=== PATIENT | female | born 1980 | race Caucasian/White ===

== ENCOUNTER 2016-04-07 03:00 | Inpatient (IN) | payer BC, OTHER ==
[~2016-04-07] VITALS: Ht 170.2 cm; Wt 83.0 kg
[2016-04-07] VITALS (21 sets, daily range): BP systolic 111–162; BP diastolic 53–85
[2016-04-07] MEDS ORDERED: D5 LR IV SOLUTION 1,000 ML IV SCH (15:50)
[2016-04-07] MEDS ORDERED: MINERAL OIL CONCENTRATE 99.9% 15 ML UDC TOP PRN (16:00)
[2016-04-07 16:04] LABS: BASOPHILS % (AUTO) 0 % (0-10); EOSINOPHILS # (AUTO) 0.1 10^3/uL (0.0-0.3); EOSINOPHILS % (AUTO) 1 % (0-10); LYMPHOCYTES # (AUTO) 2.2 X 10^3 (1.0-4.0); LYMPHOCYTES % (AUTO) 17 % (12-44); MEAN CORPUSCULAR HEMOGLOBIN 30 PG (25-34); MEAN CORPUSCULAR HGB CONC 34 G/DL (32-36); MEAN CORPUSCULAR VOLUME 90 FL (80-99); MEAN PLATELET VOLUME 11.4 FL (7.4-10.4); MONOCYTES % (AUTO) 8 % (0-12); NEUTROPHILS # (AUTO) 9.4 X 10^3 (1.8-7.8); NEUTROPHILS % (AUTO) 74 % (42-75); PLATELET COUNT 145 10^3/uL (130-400); RED BLOOD COUNT 4.15 10^6/uL (4.35-5.85); RED CELL DISTRIBUTION WIDTH 13.5 % (10.0-14.5); WHITE BLOOD COUNT 12.6 10^3/uL (4.3-11.0)
[2016-04-07] MEDS ORDERED: FERR-74 PO (16:44)
[2016-04-07] MEDS ORDERED: PREN1TAB86 PO (16:45)
[2016-04-07] MEDS ORDERED: OXYTOCIN/NORMAL SALINE 500 ML IV SCH ×2 (17:37→21:09)
[2016-04-07] MEDS ORDERED: fentaNYL INJECTION 100 MCG/2 ML AMP IVP PRN (17:45)
[2016-04-07] MEDS ORDERED: SUFENTA 1 MCG/ML BUPIVA 0.1% 100 ML ONE (18:19)
[2016-04-07] MEDS ORDERED: LACTATED RINGERS 1,000 ML IV ONE (18:42)
[2016-04-07] MEDS ORDERED: diphenhydrAMINE 50 MG/ML INJ (BENADRYL) IV PRN ×2 (18:45→19:15)
[2016-04-07] MEDS ORDERED: METOCLOPRAMIDE INJ 10 MG/2 ML (REGLAN) IV PRN (18:45)
[2016-04-07] MEDS ORDERED: ONDANSETRON 4 MG/2 ML (SDV) Z0FRAN IV PRN ×2 (18:45→19:15)
[2016-04-07] MEDS ORDERED: NALOXONE 0.4 MG/ML 1 ML (NARCAN) VIAL IM PRN (18:45)
[2016-04-07] MEDS ORDERED: fentaNYL INJECTION 100 MCG/2 ML AMP INJ ONE (18:45)
[2016-04-07] MEDS ORDERED: EPIDURAL (SUFENTANIL 1 MCG/ML BUPIVACAINE 0.1%) 100 ML EPI PRN ×2 (18:45→19:15)
[2016-04-07] MEDS ORDERED: CATHETER FLUSH 10 ML SYR IV PRN (18:45)
[2016-04-07] MEDS ORDERED: NALOXONE 0.4 MG/ML 1 ML (NARCAN) VIAL IV PRN ×2 (18:45→19:15)
[2016-04-07] MEDS ORDERED: LACTATED RINGERS 1,000 ML IV SCH (19:02)
[2016-04-07] MEDS ORDERED: FLU TRIvalent (5 YOA+) 2016-17 (AFLURIA) 0.5 ML IM ONE (20:00)
[2016-04-07] MEDS ORDERED: LIDOCAINE/EPI 1%-1:200,000 (XYLOCAINE) 30 ML VIAL ONE (20:20)
--- NOTE | 2016-04-07 21:09 | OB Labor & Delivery Record ---
Vag Delivery Note Vag Delivery Note Date of Delivery: 04/07/16 Preoperative Diagnosis: Jessica Novak is a 35 /Para 5 /4 ,Gestational Age 39 5/7 week in labor, ama Postoperative Diagnosis: Same Surgeon: KEATON MATA Anesthesia: epidural Delivery Type: vaginal Findings: Viable male infant, apgars 9/9, weight 8#10oz Lacerations: 1st degree Intact placenta with 3 vessel cord. No nuchal cord, body cord or shoulder dystocia Estimated Blood Loss: 200 ml Complications: None Condition: Stable Description of Procedure: The patient is a 35 /Para 5 /4 ,Gestational Age 39 5/7 week in labor. AMA. she presented to the office in labor, 6-7 cm dilated. She was dung every 5-6 minutes. Labor was uncomplicated. I did AROM and an epidural was placed. There was pitocin augmentation She progressed to complete dilatation and began to push. She was then set up for delivery. The infant's head was delivered atraumatically in the GEMA position. The shoulders and remainder of the 's body were then delivered without difficulty. Upon delivery, the head was held below the level of the perineum and the mouth and nares were bulb suctioned. The cord was doubly clamped and cut and the was handed off to the pediatric staff. An intact placenta with 3-vessel cord delivered via Villa and there was found to be minimal bleeding.~ Vigorous fundal massage was performed and the fundus was found to be firm. IV oxytocin was given. Examination of the vagina and perineum revealed a 1st laceration repaired in the usual fashion with 3-0 vicryl suture. Following the repair, sponge, instrument and needle counts were correct. Mom and baby were both in stable condition in the labor suite. Vitals - Labs Vital Signs - I&O Vital Signs Date Time Temp Pulse Resp B/P Pulse Ox O2 Delivery O2 Flow Rate FiO2 04/07/16 19:00 94 18 138/63 04/07/16 18:30 77 18 142/79 04/07/16 18:00 85 18 129/77 04/07/16 17:30 90 18 125/72 04/07/16 17:00 82 18 119/63 04/07/16 16:30 88 18 120/74 04/07/16 16:00 98.2 78 18 113/73 Labs Laboratory Tests 04/07/16 15:55: Basophils # (Auto) 0.0, Basophils (%) (Auto) 0, Eosinophils # (Auto) 0.1, Eosinophils (%) (Auto) 1, Hematocrit 37, Hemoglobin 12.5, Lymphocytes # (Auto) 2.2, Lymphocytes (%) (Auto) 17, Mean Corpuscular Hemoglobin 30, Mean Corpuscular Hemoglobin Concent 34, Mean Corpuscular Volume 90, Mean Platelet Volume 11.4H, Monocytes # (Auto) 1.0, Monocytes (%) (Auto) 8, Neutrophils # ( Auto) 9.4H, Neutrophils (%) (Auto) 74, Platelet Count 145, Red Blood Count 4.15L , Red Cell Distribution Width 13.5, White Blood Count 12.6H KEATON MATA DO Apr 07, 2016 9:09 pm
[2016-04-07] MEDS ORDERED: TETANUS,DIPTH,PERTUSS P/F (BOOSTRIX) 0.5 ML VIAL IM ONE (21:15)
[2016-04-07] MEDS ORDERED: MEASLES,MUMPS,RUBELLA 1 EA INJ SQ ONE (21:15)
[2016-04-07] MEDS ORDERED: BENZOCAINE/MENTHOL (DERMOPLAST) 56 ML CAN TP PRN (21:15)
[2016-04-07] MEDS ORDERED: WITCH HAZEL(TUCKS) 40 EA JAR TOP PRN (21:15)
[2016-04-07] MEDS ORDERED: DIBUCAINE (NUPERCAINAL) 1% OINT 30 GM TOP PRN (21:15)
[2016-04-07] MEDS ORDERED: CATHETER FLUSH 10 ML SYR IV SCH ×2 (22:00)
[2016-04-08 00:10] VITALS: BP 113/64
[2016-04-08] MEDS: IBUPROFEN 600 MG (MOTRIN) TAB PO SCH ×4 (00:10→18:53)
[2016-04-08 04:30] VITALS: BP 106/66
[2016-04-08] MEDS: HYDROcodone/APAP 5 MG/325 MG (LORTAB) TAB PO PRN ×2 (06:03→20:14)
[2016-04-08 06:35] LABS: BASOPHILS % (AUTO) 0 % (0-10); EOSINOPHILS # (AUTO) 0.1 10^3/uL (0.0-0.3); EOSINOPHILS % (AUTO) 1 % (0-10); LYMPHOCYTES # (AUTO) 2.1 X 10^3 (1.0-4.0); LYMPHOCYTES % (AUTO) 15 % (12-44); MEAN CORPUSCULAR HEMOGLOBIN 31 PG (25-34); MEAN CORPUSCULAR HGB CONC 34 G/DL (32-36); MEAN CORPUSCULAR VOLUME 91 FL (80-99); MEAN PLATELET VOLUME 11.3 FL (7.4-10.4); MONOCYTES # (AUTO) 1.2 X 10^3 (0.0-1.0); MONOCYTES % (AUTO) 9 % (0-12); NEUTROPHILS # (AUTO) 10.2 X 10^3 (1.8-7.8); NEUTROPHILS % (AUTO) 75 % (42-75); PLATELET COUNT 122 10^3/uL (130-400); RED BLOOD COUNT 3.78 10^6/uL (4.35-5.85); RED CELL DISTRIBUTION WIDTH 13.5 % (10.0-14.5); WHITE BLOOD COUNT 13.7 10^3/uL (4.3-11.0)
--- NOTE | 2016-04-08 08:30 | Anesthesia-Regional Post-Op ---
Regional Patient Condition Mental Status: Alert, Oriented x3 Circulation: Same as Pre-Op Headache: Absent Sensation: Full Recovery Motor Block: Absent Post Op Complications Complications None Follow Up Care/Instructions Patient Instructions None needed. Anesthesia/Patient Condition Patient is doing well, no complaints, stable vital signs, no apparent adverse anesthesia problems. No complications reported per nursing. MILAGROS GONZALEZ CRNA Apr 08, 2016 08:30
[2016-04-08 09:15] VITALS: BP 110/69
[2016-04-08] MEDS: DOCUSATE SODIUM 100 MG (COLACE) CAP PO SCH ×2 (09:24→20:13)
[2016-04-08] MEDS: PRENATAL VITAMIN 1 EA TAB PO SCH (09:24)
[2016-04-08] MEDS: FERROUS SULF 325 MG (IRON) TAB PO SCH (09:24)
--- NOTE | 2016-04-08 10:56 | Postpartum Progress Note ---
Note Note Day # 1 Subjective: Patient is without complaints. Ambulating, voiding. Tolerating a regular diet without nausea or vomiting. Normal lochia. Pain is well controlled with oral pain medications. Objective: Vital Sign - Last 12Hours 04/08/16 04/08/16 04/08/16 00:10 04:30 09:15 Temp 98.0 98.1 97.4 Pulse 73 73 70 Resp 18 18 20 B/P 113/64 106/66 110/69 Pulse Ox 100 99 O2 Delivery Room Air Room Air Room Air Intake and Output 04/08/16 00:00 Output Total 0 ml Balance 0 ml Physical Exam: General - Alert and oriented, no apparent distress Abdomen - Soft, appropriately tender to palpation, non-distended, fundus firm at umbilicus Extremities - no edema, negative Homero's bilaterally Laboratory Tests 04/07/16 15:55: Basophils # (Auto) 0.0, Basophils (%) (Auto) 0, Eosinophils # (Auto) 0.1, Eosinophils (%) (Auto) 1, Hematocrit 37, Hemoglobin 12.5, Lymphocytes # (Auto) 2.2, Lymphocytes (%) (Auto) 17, Mean Corpuscular Hemoglobin 30, Mean Corpuscular Hemoglobin Concent 34, Mean Corpuscular Volume 90, Mean Platelet Volume 11.4H, Monocytes # (Auto) 1.0, Monocytes (%) (Auto) 8, Neutrophils # ( Auto) 9.4H, Neutrophils (%) (Auto) 74, Platelet Count 145, Red Blood Count 4.15L , Red Cell Distribution Width 13.5, White Blood Count 12.6H 04/08/16 06:10: Basophils # (Auto) 0.0, Basophils (%) (Auto) 0, Eosinophils # (Auto) 0.1, Eosinophils (%) (Auto) 1, Hematocrit 34L, Hemoglobin 11.6, Lymphocytes # (Auto) 2.1, Lymphocytes (%) (Auto) 15, Mean Corpuscular Hemoglobin 31, Mean Corpuscular Hemoglobin Concent 34, Mean Corpuscular Volume 91, Mean Platelet Volume 11.3H, Monocytes # (Auto) 1.2H, Monocytes (%) (Auto) 9, Neutrophils # ( Auto) 10.2H, Neutrophils (%) (Auto) 75, Platelet Count 122L, Red Blood Count 3.78L, Red Cell Distribution Width 13.5, White Blood Count 13.7H Assessment: 35 y/o post- day # 1, status post spontaneous vaginal delivery. Recovering well, hemodynamically stable Plan: Routine care. Encourage ambulation. Plan for discharge tomorrow (delivered late last evening) Vitals - Labs Vital Signs - I&O Vital Signs Date Time Temp Pulse Resp B/P Pulse Ox O2 Delivery O2 Flow Rate FiO2 04/08/16 09:15 97.4 70 20 110/69 Room Air 04/08/16 04:30 98.1 73 18 106/66 99 Room Air 04/08/16 00:10 98.0 73 18 113/64 100 Room Air 04/07/16 22:30 98.6 79 18 118/57 Room Air 04/07/16 22:00 98.7 88 18 115/53 Room Air 04/07/16 21:45 81 18 115/58 Room Air 04/07/16 21:30 88 18 117/68 Room Air 04/07/16 21:15 104 18 111/76 Room Air 04/07/16 21:00 98.3 96 18 162/65 Room Air 04/07/16 20:45 106 18 157/67 Room Air 04/07/16 20:38 96 18 141/70 Room Air 04/07/16 20:30 81 18 100 Room Air 04/07/16 20:15 83 18 135/62 100 Room Air 04/07/16 20:00 100 18 132/85 100 Room Air 04/07/16 19:45 75 18 123/79 100 Room Air 04/07/16 19:30 96.9 77 18 130/64 100 Room Air 04/07/16 19:15 91 18 134/67 99 Room Air 04/07/16 19:02 94 18 132/66 99 Room Air 04/07/16 19:00 94 18 138/63 04/07/16 18:30 77 18 142/79 04/07/16 18:00 85 18 129/77 04/07/16 17:30 90 18 125/72 04/07/16 17:00 82 18 119/63 04/07/16 16:30 88 18 120/74 04/07/16 16:00 98.2 78 18 113/73 I & O 04/08/16 07:00 Output Total 0 ml Balance 0 ml Labs Laboratory Tests 04/07/16 15:55: Basophils # (Auto) 0.0, Basophils (%) (Auto) 0, Eosinophils # (Auto) 0.1, Eosinophils (%) (Auto) 1, Hematocrit 37, Hemoglobin 12.5, Lymphocytes # (Auto) 2.2, Lymphocytes (%) (Auto) 17, Mean Corpuscular Hemoglobin 30, Mean Corpuscular Hemoglobin Concent 34, Mean Corpuscular Volume 90, Mean Platelet Volume 11.4H, Monocytes # (Auto) 1.0, Monocytes (%) (Auto) 8, Neutrophils # ( Auto) 9.4H, Neutrophils (%) (Auto) 74, Platelet Count 145, Red Blood Count 4.15L , Red Cell Distribution Width 13.5, White Blood Count 12.6H 04/08/16 06:10: Basophils # (Auto) 0.0, Basophils (%) (Auto) 0, Eosinophils # (Auto) 0.1, Eosinophils (%) (Auto) 1, Hematocrit 34L, Hemoglobin 11.6, Lymphocytes # (Auto) 2.1, Lymphocytes (%) (Auto) 15, Mean Corpuscular Hemoglobin 31, Mean Corpuscular Hemoglobin Concent 34, Mean Corpuscular Volume 91, Mean Platelet Volume 11.3H, Monocytes # (Auto) 1.2H, Monocytes (%) (Auto) 9, Neutrophils # ( Auto) 10.2H, Neutrophils (%) (Auto) 75, Platelet Count 122L, Red Blood Count 3.78L, Red Cell Distribution Width 13.5, White Blood Count 13.7H JOCELYN DEJESUS MD Apr 08, 2016 10:56
[2016-04-08] MEDS ORDERED: IBUP-1773 PO (17:35)
--- NOTE | 2016-04-08 17:39 | Discharge Inst-Women's Service ---
Discharge Inst-Women's Serv Depart Medication/Instructions New, Converted or Re-Newed RX: RX on Chart Final Diagnosis labor epidural vaginal delivery Consults/Follow Up Additional Follow Up: Yes (6 weeks) Activity Activity: Activity as Tolerated Driving Instructions: You May Drive NO SMOKING: NO SMOKING Nothing Inside Vagina: No Douching, No [place], No Tampons Diet Discharge Diet: No Restrictions Symptoms to Report to : Bleeding Excessive, Pain Increased, Fever Over 101 Degrees F, Vaginal Bleeding Increase, Vaginal Discharge Foul For Any Problems or Questions: Contact Your Physician KEATON MATA DO Apr 08, 2016 17:39
[2016-04-08 17:45] VITALS: BP 118/71
[2016-04-08 20:14] VITALS: BP 116/68
[2016-04-09 00:59] VITALS: BP 112/68
[2016-04-09] MEDS: IBUPROFEN 600 MG (MOTRIN) TAB PO SCH ×3 (00:59→08:22)
[2016-04-09 08:20] VITALS: BP 110/68
[2016-04-09] MEDS: DOCUSATE SODIUM 100 MG (COLACE) CAP PO SCH (08:22)
[2016-04-09] MEDS: PRENATAL VITAMIN 1 EA TAB PO SCH (08:22)
[2016-04-09] MEDS: FERROUS SULF 325 MG (IRON) TAB PO SCH (08:22)
--- NOTE | 2016-04-09 08:52 | Postpartum Progress Note ---
Note Note Day # 1 Subjective: Patient is without complaints. Ambulating, voiding. Tolerating a regular diet without nausea or vomiting. Normal lochia. Pain is well controlled with oral pain medications. Ready for discharge. Objective: Vital Sign - Last 12Hours 04/09/16 04/09/16 00:59 08:20 Temp 97.4 97.8 Pulse 78 84 Resp 20 20 B/P 112/68 110/68 O2 Delivery Room Air Room Air Physical Exam: General - Alert and oriented, no apparent distress Abdomen - Soft, appropriately tender to palpation, non-distended, fundus firm at umbilicus Extremities - no edema, negative Homero's bilaterally no new labs Assessment: 35 y/o post- day # 2, status post spontaneous vaginal delivery. Recovering well, hemodynamically stable PP Hgb 11.6 Rh neg s/p RhoGAM Plan: Routine care. Encourage ambulation. Plan for discharge today f/u with Dr. Moore in 6 weeks Vitals - Labs Vital Signs - I&O Vital Signs Date Time Temp Pulse Resp B/P Pulse Ox O2 Delivery O2 Flow Rate FiO2 04/09/16 08:20 97.8 84 20 110/68 Room Air 04/09/16 00:59 97.4 78 20 112/68 Room Air 04/08/16 20:14 97.8 76 20 116/68 Room Air 04/08/16 17:45 97.3 72 20 118/71 Room Air 04/08/16 09:15 97.4 70 20 110/69 Room Air JOCELYN DEJESUS MD Apr 09, 2016 08:52
== END 2016-04-09 09:45 | disposition home or self-care (01) | DRG 775 ==
LOC: LDRP 03:00
PROVIDERS: ADMIT Obstetrics & Gynecology; ATTEND Obstetrics & Gynecology
PROC: 10E0XZZ Delivery of Products of Conception, External Approach (ICD-10-PCS; principal; 2016-04-07)
PROC: 0HQ9XZZ Repair Perineum Skin, External Approach (ICD-10-PCS; 2016-04-07)
DX: O70.0 First degree perineal laceration during delivery (principal); Z3A.39 39 weeks gestation of pregnancy; Z37.0 Single live birth
CPT/HCPCS: 36415; 83033; 85025; 86850; 86900; 86901